=== PATIENT | male | born 1940 | race Caucasian/White ===

== ENCOUNTER → 2019-08-10 | Outpatient (CLI) | payer MEDICARE ==
[~2019-08-10] MED LIST: REGADENOSON 0.4 MG/5 ML SYRINGE ONE
== END | disposition home or self-care (01) ==
LOC: CVU 06:47
PROVIDERS: ATTEND Internal Medicine Cardiovascular Disease
DX: I08.2 Rheumatic disorders of both aortic and tricuspid valves (principal); I11.9 Hypertensive heart disease without heart failure; I63.9 Cerebral infarction, unspecified; E78.5 Hyperlipidemia, unspecified; Z95.5 Presence of coronary angioplasty implant and graft
CPT/HCPCS: 78452; 93017; 93306; A9502; J2785